=== PATIENT | male | born 1995 | race Two or more races ===

== ENCOUNTER 2016-09-26 13:05 | Inpatient (IN) | payer OTHER ==
[2016-09-26 13:17] VITALS: BMI 40.6
[2016-09-26] MEDS ORDERED: SODIUM CHLORIDE 0.9% 1000 ML INFUS.BAG IV STA (14:02)
[2016-09-26] MEDS ORDERED: ACETAMINOPHEN 1000 MG/100 ML VIAL (NON FORMULARY) IVPB ONE (14:04)
[2016-09-26] MEDS ORDERED: VANCOMYCIN 1,750 MG in DEXTROSE 5%-WATER - 250 ML IVPB STA (14:06)
--- NOTE | 2016-09-26 14:17 | PDOC ---
History of Present Illness - General Chief Complaint: Abscess Boil Stated Complaint: PAIN Time Seen by Provider: 09/26/16 13:56 History Source: Patient Exam Limitations: No Limitations - History of Present Illness Initial Comments: 09/26/16 14:15 21 yr male no past medical history presents with fever, chills abd abscess for one week worse the past 4 days, redness and streaking across the abdomen. Pt states "it was a small pimple" , pt denies any history of MRSA, denies history of DM. Severity: Yes: moderate Past History - Past Medical History Allergies/Adverse Reactions: Allergies Allergy/AdvReac Type Severity Reaction Status Date / Time No Known Allergies Allergy Verified 09/26/16 13:17 Home Medications: Ambulatory Orders Clindamycin [Cleocin -] 150 mg PO Q6H #20 capsule 09/29/16 Clindamycin [Cleocin -] 300 mg PO Q6H #20 capsule 09/29/16 Oxycodone HCl/Acetaminophen [Percocet 5-325 mg Tablet] 1 tab PO Q6H #20 tablet MDD 4 09/29/16 Other medical history: PATIENT DENIES MEDICAL HISTORY - Psycho/Social/Smoking Cessation Hx Anxiety: No Suicidal Ideation: No Smoking Status: No Smoking History: Never smoked Number of Cigarettes Smoked Daily: 0 Hx Alcohol Use: No Drug/Substance Use Hx: No Review of Systems - Review of Systems Able to Perform ROS?: Yes Is the patient limited Martiniquais proficient: No Constitutional: Yes: Chills, Fever Integumentary: Yes: Symptoms Reported *Physical Exam - Vital Signs Last Vital Signs Temp Pulse Resp BP Pulse Ox 99.8 F H 96 H 18 135/63 100 09/26/16 13:15 09/26/16 13:15 09/26/16 13:15 09/26/16 13:15 09/26/16 13:15 - Physical Exam General Appearance: Yes: Nourished, Obese HEENT: positive: EOMI, JANETH, Pharynx Normal Neck: positive: Supple Respiratory/Chest: positive: Lungs Clear, Normal Breath Sounds Cardiovascular: positive: Regular Rhythm, Regular Rate Gastrointestinal/Abdominal: positive: Tender, Soft Musculoskeletal: positive: Normal Inspection Extremity: positive: Normal Capillary Refill, Normal Inspection, Normal Range of Motion Integumentary: positive: Other ([id number] indurated, abscess to left side abdomen with punctuate center surrounding erythema ) Neurologic: positive: Fully Oriented, Alert, Normal Mood/Affect, Normal Response , Motor Strength 08/15 ED Treatment Course - LABORATORY CBC & Chemistry Diagram: 09/29/16 06:00 09/27/16 06:35 - RADIOLOGY Radiology Studies Ordered: Category Date Time Status CHEST X-RAY PORTABLE* [RAD] Stat Radiology 09/26/16 14:02 Ordered Medical Decision Making - Medical Decision Making 09/26/16 14:17 cc: fever, chills, abscess with surrounding cellulitus to the abdomen will do labs, IVAB surgical consult 09/26/16 14:40 spoke with and will see pt in the ER. Pt is to be kept NPO. Pt is aware of the plan. 09/26/16 14:49 09/26/16 15:01 would like tp admitted to hospitalist. will take pt to OR today. Pt NPO since last night. microblog done to hospitalist *DC/Admit/Observation/Transfer Diagnosis at time of Disposition: Abscess - Discharge Dispostion Condition at time of disposition: Stable Admit: Yes - Prescriptions
[2016-09-26 14:25] LABS: VENOUS PH 7.36 (7.32-7.42)
[2016-09-26] MEDS ORDERED: ACETAMINOPHEN INJECTION 100 ML IVPB ONE (14:26)
[2016-09-26 14:27] LABS: BASOPHIL 0.4 % (0-2.0); EOSINOPHIL 1.5 % (0-4.5); MCH 27.7 pg (25.7-33.7); MCHC 32.9 g/dl (32.0-35.9); MEAN CELL VOLUME 84.2 fl (80-96); PLATELET COUNT 152 K/MM3 (134-434); RDW 13.8 % (11.9-15.9); WHITE BLOOD COUNT 12.7 K/mm3 (4.0-10.0)
[2016-09-26 14:47] LABS: INR 1.28 (0.82-1.09); PROTHROMBIN TIME (PATIENT) 14.1 SEC (9.98-11.88)
[2016-09-26 14:50] LABS: ACTIVATED PTT 34.8 SECONDS (26.9-34.4)
[2016-09-26 14:51] LABS: URINE APPEARANCE CLEAR; URINE BILIRUBIN NEGATIVE (NEGATIVE); URINE BLOOD NEGATIVE (NEGATIVE); URINE COLOR DKYELLOW; URINE GLUCOSE (UA) NEGATIVE (NEGATIVE); URINE KETONE NEGATIVE (NEGATIVE); URINE LEUK ESTERASE NEGATIVE (NEGATIVE); URINE NITRITE NEGATIVE (NEGATIVE); URINE PROTEIN NEGATIVE (NEGATIVE); URINE UROBILINOGEN 4.0 E.U/dl E.U./dl (0.2-1.0)
[2016-09-26 14:55] LABS: ALBUMIN 3.3 g/dl (3.4-5.0); ANION GAP 9 (8-16); BILIRUBIN,TOTAL 0.9 mg/dL (0.2-1.0); CALCIUM 8.8 mg/dL (8.5-10.1); CO2 27 mmol/L (21-32); CREATININE 0.9 mg/dL (0.7-1.3); GLUCOSE,RANDOM 70 mg/dL (74-106); SGOT/AST 26 U/L (15-37); SGPT/ALT 41 U/L (12-78); TOT PROT 7.1 g/dl (6.4-8.2)
[2016-09-26 14:57] LABS: ALK PHOS 69 U/L (45-117); TROPONIN I < 0.02 ng/ml (0.00-0.05)
--- NOTE | 2016-09-26 15:25 | HP ---
CHIEF COMPLAINT: "I have a pimple on my stomach." PCP: None HISTORY OF PRESENT ILLNESS: This is a 21yo man without significant medical history who present with abscess to left lower abdomen which he noticed on . He reports fevers and chills on 09/25. Surrounding area with increased erythema and streaking when he awoke this AM. Pain has been gradually increasing since he noticed the abscess. ER course was notable for: (1) WBC- 12.7 (2) Surgical consult- OR pending (3) lactic acid 1.0 Recent Travel: denies PAST MEDICAL HISTORY: denies PAST SURGICAL HISTORY: denies Social History: Smoking: denies Alcohol: denies Drugs: denies Occupation: student Family History: non-contributory Allergies No Known Allergies Allergy (Verified 09/26/16 13:17) HOME MEDICATIONS: Home Medications 3 Medication Instructions Recorded NK [No Known Home Medication] 09/26/16 REVIEW OF SYSTEMS CONSTITUTIONAL: Present: fever, chills Absent: diaphoresis, generalized weakness, malaise, loss of appetite, weight change HEENT: Absent: rhinorrhea, nasal congestion, throat pain, throat swelling, difficulty swallowing, mouth swelling, ear pain, eye pain, visual changes CARDIOVASCULAR: Absent: chest pain, syncope, palpitations, irregular heart rate, lightheadedness , peripheral edema RESPIRATORY: Absent: cough, shortness of breath, dyspnea with exertion, orthopnea, wheezing, stridor, hemoptysis GASTROINTESTINAL: Absent: abdominal pain, abdominal distension, nausea, vomiting, diarrhea, constipation, melena, hematochezia GENITOURINARY: Absent: dysuria, frequency, urgency, hesitancy, hematuria, flank pain, genital pain MUSCULOSKELETAL: Absent: myalgia, arthralgia, joint swelling, back pain, neck pain SKIN: Present: erythema to abdomen Absent: rash, itching, pallor HEMATOLOGIC/IMMUNOLOGIC: Absent: easy bleeding, easy bruising, lymphadenopathy, frequent infections ENDOCRINE: Absent: unexplained weight gain, unexplained weight loss, heat intolerance, cold intolerance NEUROLOGIC: Absent: headache, focal weakness or paresthesias, dizziness, unsteady gait, seizure, mental status changes, bladder or bowel incontinence PSYCHIATRIC: Absent: anxiety, depression, suicidal or homicidal ideation, hallucinations. PHYSICAL EXAMINATION Vital Signs - 24 hr 3 09/26/16 13:15 Temperature 99.8 F H Pulse Rate 96 H Respiratory 18 Rate Blood Pressure 135/63 O2 Sat by Pulse 100 Oximetry (%) GENERAL: Awake, alert, and fully oriented, in no acute distress. HEAD: Normal with no signs of trauma. EYES: Pupils equal, round and reactive to light, extraocular movements intact, sclera anicteric, conjunctiva clear. No lid lag. EARS, NOSE, THROAT: Ears normal, nares patent, oropharynx clear without exudates. Moist mucous membranes. NECK: Normal range of motion, supple without lymphadenopathy, JVD, or masses. LUNGS: Breath sounds equal, clear to auscultation bilaterally. No wheezes, and no crackles. No accessory muscle use. HEART: Regular rate and rhythm, normal S1 and S2 without murmur, rub or gallop. ABDOMEN: Soft, nontender, not distended, normoactive bowel sounds, no guarding, no rebound, no masses. No hepatomegaly or splenomegaly. LLQ erythema with fluctuance noted extending to middle abdomen inferior to umbilicus. Streaking present. MUSCULOSKELETAL: Normal range of motion at all joints. No bony deformities or tenderness. No CVA tenderness. UPPER EXTREMITIES: 2+ pulses, warm, well-perfused. No cyanosis. No clubbing. No peripheral edema. LOWER EXTREMITIES: 2+ pulses, warm, well-perfused. No calf tenderness. No peripheral edema. NEUROLOGICAL: Cranial nerves II-XII intact. Normal speech. Normal gait. PSYCHIATRIC: Cooperative. Good eye contact. Appropriate mood and affect. SKIN: Warm, dry, normal turgor, no rashes or lesions noted, normal capillary refill. Laboratory Results - last 24 hr 3 09/26/16 09/26/16 09/26/16 14:10 14:10 14:10 WBC 12.7 H RBC 5.45 Hgb 15.1 Hct 45.9 MCV 84.2 MCHC 32.9 RDW 13.8 Plt Count 152 MPV 10.0 Neutrophils % 73.0 Lymphocytes % 16.0 Monocytes % 9.1 Eosinophils % 1.5 Basophils % 0.4 INR 1.28 H PTT (Actin FS) 34.8 H VBG pH POC VBG pCO2 POC VBG pO2 Mixed VBG HCO3 Sodium Potassium Chloride Carbon Dioxide Anion Gap BUN Creatinine Creat Clearance w eGFR Random Glucose Lactic Acid Calcium Total Bilirubin AST ALT Alkaline Phosphatase Creatine Kinase Troponin I Total Protein Albumin Urine Color Dkyellow Urine Appearance Clear Urine pH 5.0 Urine Protein Negative Urine Glucose (UA) Negative Urine Ketones Negative Urine Blood Negative Urine Nitrite Negative Urine Bilirubin Negative Urine Urobilinogen 4.0 e.u/dl Ur Leukocyte Esterase Negative Blood Type Antibody Screen 3 09/26/16 09/26/16 09/26/16 14:10 14:10 14:10 WBC RBC Hgb Hct MCV MCHC RDW Plt Count MPV Neutrophils % Lymphocytes % Monocytes % Eosinophils % Basophils % INR PTT (Actin FS) VBG pH 7.36 POC VBG pCO2 49.1 POC VBG pO2 31.6 Mixed VBG HCO3 27.0 H Sodium 138 Potassium 4.2 Chloride 102 Carbon Dioxide 27 Anion Gap 9 BUN 9 Creatinine 0.9 Creat Clearance w eGFR > 60 Random Glucose 70 L Lactic Acid 1.0 Calcium 8.8 Total Bilirubin 0.9 AST 26 ALT 41 Alkaline Phosphatase 69 Creatine Kinase 341 H Troponin I < 0.02 Total Protein 7.1 Albumin 3.3 L Urine Color Urine Appearance Urine pH Urine Protein Urine Glucose (UA) Urine Ketones Urine Blood Urine Nitrite Urine Bilirubin Urine Urobilinogen Ur Leukocyte Esterase Blood Type Antibody Screen 3 09/26/16 14:10 WBC RBC Hgb Hct MCV MCHC RDW Plt Count MPV Neutrophils % Lymphocytes % Monocytes % Eosinophils % Basophils % INR PTT (Actin FS) VBG pH POC VBG pCO2 POC VBG pO2 Mixed VBG HCO3 Sodium Potassium Chloride Carbon Dioxide Anion Gap BUN Creatinine Creat Clearance w eGFR Random Glucose Lactic Acid Calcium Total Bilirubin AST ALT Alkaline Phosphatase Creatine Kinase Troponin I Total Protein Albumin Urine Color Urine Appearance Urine pH Urine Protein Urine Glucose (UA) Urine Ketones Urine Blood Urine Nitrite Urine Bilirubin Urine Urobilinogen Ur Leukocyte Esterase Blood Type O NEGATIVE Antibody Screen Negative ASSESSMENT/PLAN: A: 21yo man with abscess to LLQ. Pt denies h/o MRSA or previous treatment for abscess. Dr. Jensen aware and pt is re-op for I&D. P: 1. Abscess vs cellulitis - blood cx pending - vanco given in ED - surgery Camila consulted by ED 2. PPX - OOB - Lovenox s/p OR 3. F/E/N - NPO - LR@100 Dispo- pre-op for abscess I&D Code Status- FULL CODE Visit type - Emergency Visit Emergency Visit: Yes Care time: The patient presented to the Emergency Department on the above date and was hospitalized for further evaluation of their emergent condition. - New Patient This patient is new to me today: Yes Date on this admission: 09/26/16 - Critical Care Critical Care patient: No
[2016-09-26] MEDS ORDERED: LACTATED RINGERS SOLUTION 1,000 ML IV SCH (15:45)
--- NOTE | 2016-09-26 17:11 | CONSULT ---
- Consultation REQUESTING PROVIDER: Dandre CONSULT REQUEST: We have been asked to surgically evaluate this patient for management of an ABSSSI of the abdominal wall PCP:William Amos HISTORY OF PRESENT ILLNESS:Pain and swelling of the abdominal wall after squeezing a pimple; he came to the ER for evaluation after 1 week. PMHx: none PSHx: none Home Medications Medication Instructions Recorded NK [No Known Home Medication] 09/26/16 Allergies Allergy/AdvReac Type Severity Reaction Status Date / Time No Known Allergies Allergy Verified 09/26/16 13:17 REVIEW OF SYSTEMS: all negative PHYSICAL EXAM: GENERAL: Awake, alert, and fully oriented, in no acute distress. HEAD: Normal with no signs of trauma. EYES: PERRL, sclera anicteric, conjunctiva clear. NECK: Normal ROM, supple without lymphadenopathy, JVD, or masses. ABDOMEN: Soft, , not distended, normoactive bowel sounds, no guarding, no rebound, no masses. No organomegaly. Soft tissue infection left lower abdominal wall w/fluctuance and ttp and erythema. MUSCULOSKELETAL: Normal ROM at all joints. No bony deformities or tenderness. No CVA tenderness. UPPER EXTREMITIES: 2+ pulses, warm, well-perfused. No cyanosis. Cap refill <2 seconds. No peripheral edema. LOWER EXTREMITIES: 2+ pulses, warm, well-perfused. No calf tenderness. No peripheral edema. NEUROLOGICAL: Normal speech, gait not observed. PSYCH: Cooperative. Good eye contact. Appropriate mood and affect. SKIN: Warm, dry, normal turgor, no rashes or lesions noted. Vital Signs Temperature 99.8 F H 09/26/16 13:15 Pulse Rate 86 09/26/16 15:50 Respiratory Rate 20 09/26/16 15:50 Blood Pressure 114/52 09/26/16 15:50 O2 Sat by Pulse Oximetry (%) 98 09/26/16 15:50 Lab Results WBC 12.7 K/mm3 (4.0-10.0) H 09/26/16 14:10 RBC 5.45 M/mm3 (4.00-5.60) 09/26/16 14:10 Hgb 15.1 GM/dL (11.7-16.9) 09/26/16 14:10 Hct 45.9 % (35.4-49) 09/26/16 14:10 MCV 84.2 fl (80-96) 09/26/16 14:10 MCHC 32.9 g/dl (32.0-35.9) 09/26/16 14:10 RDW 13.8 % (11.9-15.9) 09/26/16 14:10 Plt Count 152 K/MM3 (134-434) 09/26/16 14:10 Sodium 138 mmol/L (136-145) 09/26/16 14:10 Potassium 4.2 mmol/L (3.5-5.1) 09/26/16 14:10 Chloride 102 mmol/L (98-107) 09/26/16 14:10 Carbon Dioxide 27 mmol/L (21-32) 09/26/16 14:10 Anion Gap 9 (8-16) 09/26/16 14:10 BUN 9 mg/dL (7-18) 09/26/16 14:10 Creatinine 0.9 mg/dL (0.7-1.3) 09/26/16 14:10 Random Glucose 70 mg/dL (74-106) L 09/26/16 14:10 Calcium 8.8 mg/dL (8.5-10.1) 09/26/16 14:10 Blood Type O NEGATIVE 09/26/16 14:10 Antibody Screen Negative 09/26/16 14:10 INR 1.28 (0.82-1.09) H 09/26/16 14:10 IMP: ABSSSI of the abdominal wall, PLAN: I and D; r/b/t d/w the patieny who has given informed consent. Aidan Jensen MD FACS Visit type - Case Type Case Type: ED Admission - Emergency Emergency Visit: Yes ED Registration Date: 09/26/16 Care time: The patient presented to the Emergency Department on the above date and was hospitalized for further evaluation of their emergent condition. - New patient This patient is new to me today: Yes Date on this admission: 09/26/16 - Critical Care Critical Care patient: No
[2016-09-26] MEDS ORDERED: ROCURONIUM BROMIDE 50 MG/5 ML VIAL ONE (17:15)
[2016-09-26] MEDS ORDERED: DEXAMETHASONE SOD PHOSPHATE 4 MG/1 ML VIAL ONE (17:23)
[2016-09-26] MEDS ORDERED: NEOSTIGMINE METHYLSULFATE 0.5 MG/ML - 10 ML MDV ONE (17:35)
[2016-09-26] MEDS ORDERED: GLYCOPYRROLATE 0.2 MG/1 ML VIAL ONE (17:35)
--- NOTE | 2016-09-26 18:07 | OP ---
Operative Note - Note: Operative Date: 09/26/16 Pre-Operative Diagnosis: soft tissue infection abdominal wall Operation: incision/drainage soft tissue infection of the abdominal wall Post-Operative Diagnosis: Same as Pre-op Surgeon: Aidan Jensen Anesthesia: General Estimated Blood Loss (mls): 10 Drains & Tubes with Location: Kerlex packing
[2016-09-26] MEDS ORDERED: HYDROmorphone HCL CARPU-JECT 2 MG/1 ML DISP.SYRIN ONE (18:11)
[2016-09-26] MEDS: HYDROmorphone HCL CARPU-JECT 1 MG/1 ML DISP.SYRIN IVPUSH PRN ×2 (18:15→18:50)
[2016-09-26] MEDS ORDERED: VANCOMYCIN 1,750 MG in DEXTROSE 5%-WATER - 250 ML IVPB SCH (18:15)
[2016-09-26] MEDS ORDERED: oxyCODONE HCL 5 MG TABLET PO PRN (19:29)
[2016-09-26] MEDS ORDERED: ACETAMINOPHEN 325 MG TABLET (FP) PO PRN (19:29)
[2016-09-26] MEDS: oxyCODONE HCL 5 MG TABLET PO PRN (22:13)
[2016-09-26] MEDS: DOCUSATE SODIUM 100 MG CAPSULE (FP) PO SCH (22:14)
[2016-09-27] MEDS: morphine CARPU-JECT 2 MG/1 ML DISP.SYRIN IVPUSH PRN ×3 (01:38→22:41)
[2016-09-27] MEDS: oxyCODONE HCL 5 MG TABLET PO PRN ×2 (06:25→16:54)
[2016-09-27] MEDS: ACETAMINOPHEN 325 MG TABLET (FP) PO PRN (06:26)
[2016-09-27 08:33] LABS: BASOPHIL 0.1 % (0-2.0); EOSINOPHIL 0.1 % (0-4.5); MCH 27.3 pg (25.7-33.7); MCHC 32.4 g/dl (32.0-35.9); MEAN CELL VOLUME 84.1 fl (80-96); MEAN PLT VOLUME 10.2 fl (7.5-11.1); PLATELET COUNT 177 K/MM3 (134-434); RDW 13.5 % (11.9-15.9); WHITE BLOOD COUNT 15.9 K/mm3 (4.0-10.0)
[2016-09-27 08:53] LABS: ANION GAP 10 (8-16); CALCIUM 9.2 mg/dL (8.5-10.1); CO2 26 mmol/L (21-32); CREATININE 0.7 mg/dL (0.7-1.3); GLUCOSE,RANDOM 111 mg/dL (74-106)
--- NOTE | 2016-09-27 09:56 | EKG ---
Test Reason : Blood Pressure : / mmHG Vent. Rate : 087 BPM Atrial Rate : 087 BPM P-R Int : 140 ms QRS Dur : 106 ms QT Int : 372 ms P-R-T Axes : 044 010 002 degrees QTc Int : 447 ms NORMAL SINUS RHYTHM NON-SPECIFIC INTRA-VENTRICULAR CONDUCTION DELAY NO PREVIOUS ECGS AVAILABLE Confirmed by KRISTA YEUNG MD ([id number]) on 09/27/2016 9:56:07 AM Referred By: Confirmed By:KRISTA YEUNG MD
[2016-09-27] MEDS ORDERED: VANCOMYCIN 1,750 MG in DEXTROSE 5%-WATER - 250 ML IVPB SCH ×2 (10:00→15:00)
--- NOTE | 2016-09-27 10:11 | PN ---
Progress Note (short form) - Note Progress Note: ID Full note dictated and examined with Dr Jensen Deep abd skin abscess ? MRSA Plan Vanco c/s pending wound care HIV screening Lexa ARITA Problem List - Problems (1) Abscess Code(s): L02.91 - CUTANEOUS ABSCESS, UNSPECIFIED
--- NOTE | 2016-09-27 10:20 | PN ---
Progress Note (short form) - Note Progress Note: Attending Surgeon POD #1 Wants to go home; o/w no c/o VSS AF abdomen-cellulitis resolved; no purulent drainge; minimal ttp; o/w improved Cultures pending WBC15.9 IMP:doing well s/p I and D PLAN: dressing changed ; LWC rendered; ID Consult reviewed; orders placed for wound care. D/W patient importance of ongoing inpatient tx. Aidan Jensen MD FACS
--- NOTE | 2016-09-27 10:25 | PN ---
Progress Note (short form) - Note Progress Note: POD #1- s/p I&D of abdominal wall abscess under general anesthesia. Pt. doing well, resting comfortably in bed. No complaints. No apparent anesthetic complications noted. Continue current care.
[2016-09-27] MEDS: ENOXAPARIN NA (PORCINE) 40 MG/0.4 ML DISP.SYRIN SQ SCH (10:38)
[2016-09-27] MEDS: DOCUSATE SODIUM 100 MG CAPSULE (FP) PO SCH ×2 (10:38→22:18)
--- NOTE | 2016-09-27 10:57 | OP ---
DATE OF OPERATION: 09/26/2016 PREOPERATIVE DIAGNOSIS: Abdominal wall abscess. POSTOPERATIVE DIAGNOSIS: Abdominal wall abscess. PROCEDURE PERFORMED: Incision and drainage of abdominal wall abscess. SURGEON: Aidan Jensen MD ANESTHESIA: General. OPERATIVE FINDINGS: An abscess of the abdominal wall with surrounding induration and cellulitis of the skin in the left lower abdomen. The rest of the findings were unremarkable. DESCRIPTION OF PROCEDURE: The patient was placed on the operating table in the supine position. After the induction of general anesthesia, the area of the abscess was prepped with ChloraPrep and draped in sterile fashion. A time-out was taken. An incision was made with a scalpel and taken down through the skin and subcutaneous tissue. Purulent drainage was sent for culture and sensitivity. All loculations were broken up using blunt dissection. The wound was copiously irrigated with saline and peroxide, and hemostasis secured with electrocautery. The wound was then packed with saline-soaked Kerlix. Dry sterile dressings were placed, and the procedure terminated at this point. The patient was aroused from general anesthesia and transferred to the postanesthesia care unit in stable condition, awake and alert. ESTIMATED BLOOD LOSS: Minimal. DRAINS: None. SPECIMEN: Culture and sensitivity to Microbiology. I, Aidan Jensen, was physically present in the operating room from the time the patient was placed on the operating room table until he was transferred to the postanesthesia care unit in my accompaniment. MD VIK Fox/[id number]
--- NOTE | 2016-09-27 11:55 | CONS ---
DATE OF CONSULTATION: DATE OF DICTATION: 09/27/2016 HISTORY OF PRESENT ILLNESS: This is a 21-year-old male whom I am asked to see for antibiotic approval of vancomycin. The patient has a history of recurrent skin abscesses in the past and most recently developed an abscess that started as a pimple on the lower left abdominal wall. He apparently tried squeezing it himself and subsequently it became a large abscess, which was drained by Dr. Jensen yesterday. He is not febrile and denies any abdominal pain, fever, or chills. He has no known allergies, and his HIV status is currently unknown. PHYSICAL EXAMINATION: General: On physical examination he was an alert, heavy-set male weighing 275 pounds. Vital signs: The maximum temperature was 99.8. Currently he is afebrile, pulse 78, blood pressure 132/82, respirations 20. Neck: Supple. Lungs: Clear. Heart: S1, S2, regular rhythm. Abdomen: Soft. Open, packed incision in the left lower abdominal wall. Minimal surrounding erythema noted. LABORATORY DATA: The white count is 15.9, hemoglobin 14.3, platelets 177. BUN 8, creatinine 0.7. Liver enzymes within normal limits. Urinalysis negative leukocyte esterase. ASSESSMENT: Skin and soft tissue abscess of the lower abdominal wall status post incision and drainage. Cultures pending. High likelihood MRSA (methicillin-resistant staphylococcus aureus) infection as patient has had previous skin abscesses in the past. He is not febrile or toxic appearing at this time. Two sets of blood cultures thus far show no growth, and wound culture pending. I have discussed with Dr. Jensen. He can be continued with antibiotics with vancomycin adjusted for body weight of 275 pounds, pending wound cultures. HIV screening will be also performed. SARY LOPEZ M.D. CARLYLE/[id number]
[2016-09-27 12:02] LABS: HIV 1 & 2 AB NEGATIVE; HIV 1 AGp24 NEGATIVE
[2016-09-27] MEDS: VANCOMYCIN 1,750 MG in DEXTROSE 5%-WATER - 500 ML IVPB SCH ×2 (12:30→22:18)
--- NOTE | 2016-09-27 12:39 | PN ---
Physical Exam: SUBJECTIVE: Patient seen and examined. He says his incision is painful. He denies fever, chills, SOB. Family at bedside, dressing changed by surgery OBJECTIVE: Vital Signs Period Temp Pulse Resp BP Sys/Finch Pulse Ox Last 24 Hr 98.6 F-99.8 F 76-99 12-22 114-151/52-703 96-98 PE Neuro: alert, awake, cn 2-12intact Pulm: clear anteriorly CV: s1 s2 rrr no mrg Abd: LLQ incision, packed, dressing serosanguinous, + tender to palpation, no surrounding erythema noted Ext: warm, no le edema Laboratory Results - last 24 hr 09/26/16 09/27/16 09/27/16 20:15 06:35 06:35 WBC 15.9 H RBC 5.24 Hgb 14.3 Hct 44.1 MCV 84.1 MCHC 32.4 RDW 13.5 Plt Count 177 MPV 10.2 Neutrophils % 85.0 H Lymphocytes % 9.1 D Monocytes % 5.7 Eosinophils % 0.1 D Basophils % 0.1 Sodium 136 Potassium 4.5 Chloride 100 Carbon Dioxide 26 Anion Gap 10 BUN 8 Creatinine 0.7 D Random Glucose 111 H D Calcium 9.2 C-Reactive Protein HIV 1&2 Antibody Screen HIV P24 Antigen Blood Type O NEGATIVE 09/27/16 09/27/16 10:45 10:45 WBC RBC Hgb Hct MCV MCHC RDW Plt Count MPV Neutrophils % Lymphocytes % Monocytes % Eosinophils % Basophils % Sodium Potassium Chloride Carbon Dioxide Anion Gap BUN Creatinine Random Glucose Calcium C-Reactive Protein 12.2 H HIV 1&2 Antibody Screen Negative HIV P24 Antigen Negative Blood Type Active Medications Generic Name Dose Route Start Last Admin Trade Name Freq PRN Reason Stop Dose Admin Acetaminophen 325 mg 09/26/16 19:29 Tylenol - PO 09/29/16 19:28 Q4H PRN PAIN Acetaminophen 650 mg 09/26/16 19:30 09/27/16 06:26 Tylenol - PO 09/29/16 19:29 650 mg Q4H PRN Administration PAIN Docusate Sodium 100 mg 09/26/16 22:00 09/27/16 10:38 Colace - PO 100 mg BID SIVAKUMAR Administration Enoxaparin Sodium 40 mg 09/27/16 10:00 09/27/16 10:38 Lovenox - SQ 40 mg DAILY SIVAKUMAR Administration Vancomycin HCl 1,750 mg/ 500 mls @ 250 mls/hr 09/27/16 11:00 Dextrose IVPB BID [facility] Protocol Morphine Sulfate 1 mg 09/26/16 18:09 09/27/16 11:30 Morphine Injection - IVPUSH 1 mg Q4H PRN Administration PAIN Oxycodone HCl 5 mg 09/26/16 19:29 Roxicodone - PO Q4H PRN PAIN LEVEL 1-5 Oxycodone HCl 10 mg 09/26/16 19:30 09/27/16 06:25 Roxicodone - PO 10 mg Q4H PRN Administration PAIN LEVEL 6-10 Microbiology 09/26/16 18:00 Abdomen Gram Stain - Final 09/26/16 15:00 Urine - Urine Clean Catch Urine Culture - Final Contaminated: Please Repeat Assessment: 21 year old male admitted with cellulitis s/p I&D 09/28 for abdominal wall abscess. Plan: 1. LLQ cellulitis 2/2 abd wall abscess - s/p I&D in OR 09/28 - Daily dressing changes per surgery - Continue vanco 1750 BID - Analgesia PRN 2. Leukocytosis - Blood and abx culture pending - Trend CBC - Abx as above 3. DVT ppx - Lovenox 40mg sq daily Visit type - Emergency Visit Emergency Visit: Yes ED Registration Date: 09/26/16 Care time: The patient presented to the Emergency Department on the above date and was hospitalized for further evaluation of their emergent condition. - New Patient This patient is new to me today: Yes Date on this admission: 09/27/16 - Critical Care Critical Care patient: No
[2016-09-27] MEDS ORDERED: PT OWN MED DRAWER 7, Y5N ONE (19:33)
[2016-09-28] MEDS: oxyCODONE HCL 5 MG TABLET PO PRN ×3 (06:12→19:55)
[2016-09-28 08:29] LABS: BASOPHIL 0.5 % (0-2.0); EOSINOPHIL 2.4 % (0-4.5); MCHC 32.2 g/dl (32.0-35.9); MEAN CELL VOLUME 83.9 fl (80-96); MEAN PLT VOLUME 10.4 fl (7.5-11.1); NEUTROPHILS 64.9 % (42.8-82.8); PLATELET COUNT 189 K/MM3 (134-434); RDW 13.5 % (11.9-15.9); WHITE BLOOD COUNT 11.4 K/mm3 (4.0-10.0)
--- NOTE | 2016-09-28 09:18 | PN ---
Progress Note, Physician Chief Complaint: ID Vancomycin 1.75grs daily bid - Current Medication List Current Medications: Active Medications Acetaminophen (Tylenol -) 325 mg PO Q4H PRN PRN Reason: PAIN Stop: 09/29/16 19:28 Acetaminophen (Tylenol -) 650 mg PO Q4H PRN PRN Reason: PAIN Stop: 09/29/16 19:29 Last Admin: 09/27/16 06:26 Dose: 650 mg Docusate Sodium (Colace -) 100 mg PO BID [facility] Last Admin: 09/27/16 22:18 Dose: 100 mg Enoxaparin Sodium (Lovenox -) 40 mg SQ DAILY [facility] Last Admin: 09/27/16 10:38 Dose: 40 mg Vancomycin HCl 1,750 mg/ (Dextrose) 500 mls @ 250 mls/hr IVPB BID SIVAKUMAR PRN Reason: Protocol Last Admin: 09/27/16 22:18 Dose: 250 mls/hr Morphine Sulfate (Morphine Injection -) 1 mg IVPUSH Q4H PRN PRN Reason: PAIN Last Admin: 09/27/16 22:41 Dose: 1 mg Oxycodone HCl (Roxicodone -) 5 mg PO Q4H PRN PRN Reason: PAIN LEVEL 1-5 Oxycodone HCl (Roxicodone -) 10 mg PO Q4H PRN PRN Reason: PAIN LEVEL 6-10 Last Admin: 09/28/16 06:12 Dose: 10 mg - Objective Vital Signs: Vital Signs Temperature 98.9 F 09/28/16 06:00 Pulse Rate 75 09/28/16 06:00 Respiratory Rate 20 09/28/16 06:00 Blood Pressure 102/53 09/28/16 06:00 O2 Sat by Pulse Oximetry (%) 98 09/27/16 21:00 Gastrointestinal: Yes: Other (Abd dressing as described) Labs: CBC, BMP 09/28/16 06:30 09/27/16 06:35 INR, PTT INR 1.28 (0.82-1.09) H 09/26/16 14:10 Problem List - Problems (1) Abscess Code(s): L02.91 - CUTANEOUS ABSCESS, UNSPECIFIED Assessment/Plan Laboratory Tests 09/27/16 09/27/16 09/28/16 06:35 10:45 06:30 WBC 11.4 H Hgb 14.3 Hct 44.5 Plt Count 189 BUN 8 Creatinine 0.7 D HIV 1&2 Antibody Screen Negative HIV P24 Antigen Negative Assessment Staph aureus abscess post I/D Plan Continue vancomycin Await sensitivity probable MRSA Vanco trough today or tomorrow am Lexa ARITA
[2016-09-28] MEDS: VANCOMYCIN 1,750 MG in DEXTROSE 5%-WATER - 500 ML IVPB SCH ×2 (10:09→22:39)
[2016-09-28] MEDS: ENOXAPARIN NA (PORCINE) 40 MG/0.4 ML DISP.SYRIN SQ SCH (10:09)
[2016-09-28] MEDS: DOCUSATE SODIUM 100 MG CAPSULE (FP) PO SCH ×2 (10:09→22:39)
[2016-09-28] MEDS: ACETAMINOPHEN 325 MG TABLET (FP) PO PRN ×2 (10:23→19:54)
--- NOTE | 2016-09-28 10:52 | PN ---
Progress Note (short form) - Note Progress Note: Attending Surgeon POD #2 No c/o; wound care in progress; on Vancomycin VSS AF Wound granulating; w/o drainage; erythema resolved WBC 11.4 Culture-MRSA IMP: resolving ABSSSI PLAN: Continue LWC; rest of plan per primary care team and ID Aidan Jensen MD FACS
--- NOTE | 2016-09-28 16:06 | PN ---
Physical Exam: SUBJECTIVE: Patient seen and examined. He is feeling better, less abdominal pain. Just pain with dressing changes. Denies fever, chills. OBJECTIVE: Vital Signs Period Temp Pulse Resp BP Sys/Finch Pulse Ox Last 24 Hr 98.3 F-99.4 F 57-80 20-20 102-145/50-63 98-98 PE Neuro: alert, awake, cn 2-12intact Pulm: CTAB CV: s1 s2 rrr no mrg Abd: LLQ incision, packed, dressing serosanguinous Ext: warm, no le edema Laboratory Results - last 24 hr 09/28/16 06:30 WBC 11.4 H RBC 5.31 Hgb 14.3 Hct 44.5 MCV 83.9 MCHC 32.2 RDW 13.5 Plt Count 189 MPV 10.4 Neutrophils % 64.9 D Lymphocytes % 25.2 D Monocytes % 7.0 Eosinophils % 2.4 D Basophils % 0.5 D Active Medications Generic Name Dose Route Start Last Admin Trade Name Freq PRN Reason Stop Dose Admin Acetaminophen 325 mg 09/26/16 19:29 Tylenol - PO 09/29/16 19:28 Q4H PRN PAIN Acetaminophen 650 mg 09/26/16 19:30 09/28/16 10:23 Tylenol - PO 09/29/16 19:29 650 mg Q4H PRN Administration PAIN Docusate Sodium 100 mg 09/26/16 22:00 09/28/16 10:09 Colace - PO 100 mg BID SIVAKUMAR Administration Enoxaparin Sodium 40 mg 09/27/16 10:00 09/28/16 10:09 Lovenox - SQ 40 mg DAILY SIVAKUMAR Administration Vancomycin HCl 1,750 mg/ 500 mls @ 250 mls/hr 09/27/16 11:00 09/28/16 10:09 Dextrose IVPB 250 mls/hr BID SIVAKUMAR Administration Protocol Morphine Sulfate 1 mg 09/26/16 18:09 09/27/16 22:41 Morphine Injection - IVPUSH 1 mg Q4H PRN Administration PAIN Oxycodone HCl 5 mg 09/26/16 19:29 Roxicodone - PO Q4H PRN PAIN LEVEL 1-5 Oxycodone HCl 10 mg 09/26/16 19:30 09/28/16 10:22 Roxicodone - PO 10 mg Q4H PRN Administration PAIN LEVEL 6-10 Microbiology 09/26/16 14:10 Blood Culture - Preliminary Blood - Peripheral Venous NO GROWTH OBTAINED AFTER 48 HOURS, INCUBATION TO CONTINUE FOR 3 DAYS. 09/26/16 14:10 Blood Culture - Preliminary Blood - Peripheral Venous NO GROWTH OBTAINED AFTER 48 HOURS, INCUBATION TO CONTINUE FOR 3 DAYS. 09/26/16 18:00 Gram Stain - Final Abdomen Wound Culture - Preliminary Presumptive Mrsa (Pbp2a Pos) Assessment: 21 year old male admitted with cellulitis s/p I&D 09/28 for abdominal wall abscess. Plan: 1. LLQ cellulitis 2/2 abd wall abscess - s/p I&D in OR 09/28 - Abscess cx pre mueller MRSA - Isolation precautions - Daily dressing changes per surgery - Continue vanco 1750 BID - Vanco level before evening dose tonight 2. Leukocytosis - Due to above, resolving - Abx as above 3. DVT ppx - Lovenox 40mg sq daily Visit type - Emergency Visit Emergency Visit: Yes ED Registration Date: 09/26/16 Care time: The patient presented to the Emergency Department on the above date and was hospitalized for further evaluation of their emergent condition. - New Patient This patient is new to me today: No - Critical Care Critical Care patient: No
[2016-09-29 06:48] VITALS: BP 103/52; PULSE 67; TEMP 97.8
[2016-09-29 07:33] LABS: BASOPHIL 0.9 % (0-2.0); EOSINOPHIL 3.3 % (0-4.5); MCH 27.3 pg (25.7-33.7); MCHC 32.3 g/dl (32.0-35.9); MEAN CELL VOLUME 84.4 fl (80-96); MEAN PLT VOLUME 9.8 fl (7.5-11.1); NEUTROPHILS 56.3 % (42.8-82.8); PLATELET COUNT 199 K/MM3 (134-434); RDW 13.6 % (11.9-15.9); WHITE BLOOD COUNT 8.6 K/mm3 (4.0-10.0)
--- NOTE | 2016-09-29 09:58 | PN ---
Progress Note, Physician Chief Complaint: ID Vancomycin continues Preliminary MRSA positive - Current Medication List Current Medications: Active Medications Acetaminophen (Tylenol -) 325 mg PO Q4H PRN PRN Reason: PAIN Stop: 09/29/16 19:28 Acetaminophen (Tylenol -) 650 mg PO Q4H PRN PRN Reason: PAIN Stop: 09/29/16 19:29 Last Admin: 09/28/16 19:54 Dose: 650 mg Docusate Sodium (Colace -) 100 mg PO BID [facility] Last Admin: 09/28/16 22:39 Dose: 100 mg Enoxaparin Sodium (Lovenox -) 40 mg SQ DAILY [facility] Last Admin: 09/28/16 10:09 Dose: 40 mg Vancomycin HCl 1,750 mg/ (Dextrose) 500 mls @ 250 mls/hr IVPB BID SIVAKUMAR PRN Reason: Protocol Last Admin: 09/28/16 22:39 Dose: 250 mls/hr Morphine Sulfate (Morphine Injection -) 1 mg IVPUSH Q4H PRN PRN Reason: PAIN Last Admin: 09/27/16 22:41 Dose: 1 mg Oxycodone HCl (Roxicodone -) 5 mg PO Q4H PRN PRN Reason: PAIN LEVEL 1-5 Oxycodone HCl (Roxicodone -) 10 mg PO Q4H PRN PRN Reason: PAIN LEVEL 6-10 Last Admin: 09/28/16 19:55 Dose: 10 mg - Objective Vital Signs: Vital Signs Temperature 97.8 F 09/29/16 06:00 Pulse Rate 67 09/29/16 06:00 Respiratory Rate 20 09/29/16 06:00 Blood Pressure 103/52 09/29/16 06:00 O2 Sat by Pulse Oximetry (%) 98 09/28/16 14:00 Gastrointestinal: Yes: Other (Iodoform packing wound abd wall) Labs: CBC, BMP 09/29/16 06:00 09/27/16 06:35 INR, PTT INR 1.28 (0.82-1.09) H 09/26/16 14:10 Problem List - Problems (1) Abscess Code(s): L02.91 - CUTANEOUS ABSCESS, UNSPECIFIED Assessment/Plan Laboratory Tests 09/27/16 09/28/16 09/29/16 06:35 21:30 06:00 WBC 8.6 Hgb 15.2 Plt Count 199 BUN 8 Creatinine 0.7 D Vancomycin Pre-Dose 4.974 L Assessment MRSA abscess post I/D Plan Difficult to dose vanco in these heavy set patients Repeat trough today Consider switch to ? oral Clindamycin 450mg q6H for 5 days Lexa ARITA
[2016-09-29] MEDS ORDERED: PT OWN MED DRAWER 7, Y5N ONE (10:01)
[2016-09-29] MEDS: VANCOMYCIN 1,750 MG in DEXTROSE 5%-WATER - 500 ML IVPB SCH (10:34)
[2016-09-29] MEDS: DOCUSATE SODIUM 100 MG CAPSULE (FP) PO SCH (10:34)
[2016-09-29] MEDS: ENOXAPARIN NA (PORCINE) 40 MG/0.4 ML DISP.SYRIN SQ SCH (10:34)
[2016-09-29] MEDS: oxyCODONE HCL 5 MG TABLET PO PRN (12:35)
--- NOTE | 2016-09-30 10:51 | DS ---
Physical Exam: SUBJECTIVE: Patient seen and examined. He denies fever, chill, pain. He said he will change his own dressing does not want VNS, he is happy to go home OBJECTIVE: Last Vital Signs Temp Pulse Resp BP Pulse Ox 97.8 F 67 20 103/52 98 09/29/16 06:00 09/29/16 06:00 09/29/16 06:00 09/29/16 06:00 09/29/16 09:00 PE Neuro: alert, awake, cn 2-12intact Pulm: CTAB CV: s1 s2 rrr no mrg Abd: LLQ incision, packed, dressing serosanguinous Ext: warm, no le edema HOSPITAL COURSE: Date of Admission:09/26/16 Date of Discharge: 09/29/16 Minutes to complete discharge: 37 Discharge Summary Reason For Visit: ABSCESS Hospital Course: Initial Hospital Course: Briefly, this 21 year old male without significant medical history who presented with abscess to left lower abdomen which he noticed on 09/24. He reported fevers and chills on 09/25. Surrounding area with increased erythema and streaking when he awoke the morning of admission. Pain has been gradually increasing since he noticed the abscess. Subsequent Hospital Course/Progress Note/Discharge Summary bya/p: Assessment: 21 year old male admitted with cellulitis s/p I&D 09/28 for abdominal wall abscess. Plan: 1. LLQ cellulitis 2/2 abd wall abscess - s/p I&D in OR 09/28 - Abscess cx MRSA - Daily dressing changes - s/p Vanco 1750 BID x2 days - Home clindamycin 450mg q6hr x5 days 2. Leukocytosis - Due to above, resolving - Abx as above Dispo: - Home with above abx - Follow up appt on 10/01 Dr. Jensen @ 11:30am - Pt aware and agree to above plan Condition: Stable - Instructions Diet, Activity, Other Instructions: Please return to the ED for any new, persistent, or worsening symptoms. Follow up with pcp in 1 week Take antibiotics as directed and until completed You must follow up with Dr. Jensen (surgeon) this week on Sunday 10/01 11: 30am If you have fever, chills, or the wound has increased drainage or foul smells return to the ER. Referrals: Aidan Jensen MD [Staff Physician] - 10/01/16 11:30 am (Keep your appt with Dr. Jensen on Thursday 11:30am ) Disposition: HOME - Home Medications Comprehensive Discharge Medication List: Ambulatory Orders Clindamycin [Cleocin -] 150 mg PO Q6H #20 capsule 09/29/16 Clindamycin [Cleocin -] 300 mg PO Q6H #20 capsule 09/29/16 Oxycodone HCl/Acetaminophen [Percocet 5-325 mg Tablet] 1 tab PO Q6H #20 tablet MDD 4 09/29/16 This patient is new to me today: No Emergency Visit: Yes ED Registration Date: 09/26/16 Care time: The patient presented to the Emergency Department on the above date and was hospitalized for further evaluation of their emergent condition. Critical Care patient: No - Discharge Referral Referred to [facility] No
== END 2016-09-29 13:19 | disposition home or self-care (01) | DRG 383 ==
LOC: JER 13:05 → JERBED 15:24 → J8W 18:40
PROVIDERS: ADMIT Internal Medicine; ATTEND Nurse Practitioner Acute Care
PROC: 0W9F0ZX Drainage of Abdominal Wall, Open Approach, Diagnostic (ICD-10-PCS; principal; 2016-09-26 16:15)
DX: L02.211 Cutaneous abscess of abdominal wall (principal); L03.311 Cellulitis of abdominal wall; B95.62 Methicillin resistant Staphylococcus aureus infection as the cause of diseases classified elsewhere; R50.9 Fever, unspecified; D72.829 Elevated white blood cell count, unspecified
CPT/HCPCS: 36415; 71010-TC; 80048; 80053; 81003; 82550; 82553; 82803; 83605; 84484; 85025; 85610; 85730; 86140; 86850; 86900; 86901; 87040; 87070; 87086; 87186; 87205; 87389; 93005; 93010; 94760; 99284-25; G0480

== ENCOUNTER 2016-12-11 09:49 | Emergency (ER) | payer OTHER ==
[2016-12-11 10:22] VITALS: BP 149/81; PULSE 86; TEMP 98; BMI 38.4
--- NOTE | 2016-12-11 11:07 | PDOC ---
History of Present Illness - General Chief Complaint: Rash Stated Complaint: rash Time Seen by Provider: 12/11/16 10:27 Past History - Past Medical History Allergies/Adverse Reactions: Allergies Allergy/AdvReac Type Severity Reaction Status Date / Time Penicillins Allergy Verified 12/11/16 10:36 Home Medications: Ambulatory Orders Clindamycin [Cleocin -] 300 mg PO Q6HPO #28 capsule 12/11/16 Other medical history: denies - Psycho/Social/Smoking Cessation Hx Anxiety: No Suicidal Ideation: No Smoking Status: No Smoking History: Never smoked Number of Cigarettes Smoked Daily: 0 Information on smoking cessation initiated: No Hx Alcohol Use: No Drug/Substance Use Hx: No Substance Use Type: None *Physical Exam - Vital Signs Last Vital Signs Temp Pulse Resp BP Pulse Ox 98 F 86 17 149/81 100 12/11/16 10:09 12/11/16 10:09 12/11/16 10:09 12/11/16 10:09 12/11/16 10:09 - Physical Exam Comments: 12/11/16 19:55 12/11/16 19:57 GENERAL: [The patient is awake, alert, and fully oriented, in no acute distress. ] HEAD: [Normal with no signs of trauma.] EYES: [Pupils equal, round and reactive to light, extraocular movements intact, sclera anicteric, conjunctiva clear.] EXTREMITIES: [Normal range of motion, no edema.] NEUROLOGICAL: [Normal speech, normal gait.] PSYCH: [Normal mood, normal affect.] SKIN: [Warm, Dry, normal turgor, no rashes or lesions noted.] *DC/Admit/Observation/Transfer Diagnosis at time of Disposition: Abscess - Discharge Dispostion Admit: No - Prescriptions Prescriptions: Clindamycin [Cleocin -] 300 mg PO Q6HPO #28 capsule - Referrals Referrals: STAFF,NOT ON [Primary Care Provider] - Aidan Jensen MD [Staff Physician] - - Patient Instructions Printed Discharge Instructions: DI for Skin Abscess Additional Instructions: You have an abscess on your abdomen wall. Avoid grooming your chest hair as this can cause abscesses. You were placed on antibiotics. Take the full prescription, even if you feel better. You may take ibuprofen as needed for pain. You may take 800mg every 8 hours, not to exceed 3,000mg a day. Do warm water soaks with a warm wet towel at least 4 times a day to help soften up the abscess. Call Dr. Jensen for an appointment as soon as you leave the department today. Return to the ED if you have worsening pain, fevers, chills, nausea, vomiting, or any changes in your symptoms.
[2016-12-11] MEDS ORDERED: IBUPROFEN 400 MG TABLET (FP) PO ONE ×2 (11:26→11:28)
== END 2016-12-11 11:31 | disposition home or self-care (01) ==
LOC: JERFT 09:49
DX: L02.211 Cutaneous abscess of abdominal wall (principal)
CPT/HCPCS: 99281-25